=== PATIENT | female | born 1970 | race American Indian/Alaskan Native ===

== ENCOUNTER 2021-05-22 15:43 | Emergency (ER) | payer SELFPAY ==
[2021-05-22 16:43] VITALS: BP 166/81
[2021-05-22] MEDS: MORPHINE 4 MG/1 ML INJ IV ONE ×2 (18:05→18:12)
[2021-05-22] MEDS: ONDANSETRON 4 MG/2 ML INJ IV ONE ×2 (18:05→18:12)
[2021-05-22 19:09] LABS: Bilirubin,Urine NEG (Negative); Blood,Urine NEG (Negative); Color,Urine Yellow (Yellow); Mucus,Urine FEW /HPF; Protein,Urine <15 mg/dL mg/dL (Negative); RBC,Urine < 1.0 /HPF (0.0-6.0); Urobilinogen,Urine < 2.0 mg/dL (<2.0)
--- NOTE | 2021-05-23 15:12 | Emergency Department Report ---
ED Abdominal Pain HPI - General Chief Complaint: Abdominal Pain Stated Complaint: RT LOW ABD PAIN Time Seen by Provider: 05/22/21 17:07 Source: patient Mode of arrival: Ambulatory Limitations: No Limitations - History of Present Illness Initial Comments: 51 yo black female with pmh of HTN and an inguinal hernia presents to the ED for evaluation of RLQ pain and malodorous urine that has "suds" in it. She states that her urine smells like vinegar. She denies fever, n/v/d, vaginal discharge, and dysuria. She states that RLQ pain is 8/10 at its worse. MD Complaint: abdominal pain -: Gradual, days(s) (3-4) Location: RLQ Radiation: none Migration to: no migration Severity scale (0 -10): 6 Quality: aching Consistency: constant Associated Symptoms: denies: nausea, vomiting, diarrhea, fever, chills, dysuria, hematemesis, hematochezia, melena, hematuria, anorexia, syncope - Related Data LMP (females 10-50): other (in menopause.) Allergies Allergy/AdvReac Type Severity Reaction Status Date / Time No Known Allergies Allergy Unverified 05/22/21 16:41 ED Review of Systems ROS: Stated complaint: RT LOW ABD PAIN Other details as noted in HPI Comment: All other systems reviewed and negative Constitutional: denies: chills, diaphoresis, fever, malaise, weakness Eyes: denies: eye pain, eye discharge, vision change ENT: denies: ear pain, throat pain Respiratory: denies: cough, orthopnea, shortness of breath, SOB with exertion, SOB at rest Cardiovascular: denies: chest pain, palpitations, dyspnea on exertion Genitourinary: denies: urgency, dysuria, frequency, discharge, abnormal menses Musculoskeletal: denies: back pain Skin: denies: rash, lesions Neurological: denies: headache, weakness, numbness, paresthesias, confusion, abnormal gait Psychiatric: denies: anxiety, depression Hematological/Lymphatic: denies: easy bleeding, easy bruising ED Physical Exam - General Limitations: No Limitations General appearance: alert, in no apparent distress - Head Head exam: Present: atraumatic, normocephalic - Eye Eye exam: Present: normal appearance. Absent: conjunctival injection - Neck Neck exam: Present: normal inspection. Absent: tenderness, lymphadenopathy - Respiratory Respiratory exam: Present: normal lung sounds bilaterally. Absent: respiratory distress, wheezes, rales, rhonchi, stridor, chest wall tenderness, accessory muscle use - Cardiovascular Cardiovascular Exam: Present: regular rate, normal heart sounds - GI/Abdominal GI/Abdominal exam: Present: soft, tenderness (RLQ), normal bowel sounds. Absent: distended, guarding, rebound - Back Exam Back exam: Present: normal inspection. Absent: CVA tenderness (R), CVA tenderness (L) - Neurological Exam Neurological exam: Present: alert, oriented X3, CN II-XII intact, normal gait - Psychiatric Psychiatric exam: Present: normal affect, normal mood - Skin Skin exam: Present: warm, dry, intact, normal color ED Course Vital Signs 05/22/21 16:42 Temperature 98.0 F Pulse Rate 69 Respiratory 16 Rate Blood Pressure 166/81 [Right] O2 Sat by Pulse 97 Oximetry ED Medical Decision Making - Medical Decision Making 51 yo black female with pmh of HTN and an inguinal hernia presents to the ED for evaluation of RLQ pain and malodorous urine that has "suds" in it. She states that her urine smells like vinegar. She denies fever, n/v/d, vaginal discharge, and dysuria. She states that RLQ pain is 8/10 at its worse. Patient refused to have blood drawn when phlebotomy came to room, so provider went into room to explain the importance of labs in order to find out the problem or at least rule out any life threatening causes. Patient agreed to get labs drawn. She refused again when phlebotomy came back and later seen walking out the door. She came back later but still decided that she would not have blood drawn and left again. Critical care attestation.: If time is entered above; I have spent that time in minutes in the direct care of this critically ill patient, excluding procedure time. ED Disposition Clinical Impression: Eloped from emergency department Disposition: 07 LEFT AWOL/ELOPED Is pt being admited?: No Condition: Stable Instructions: Abdominal Pain (ED) Referrals: PRIMARY CARE, [Primary Care Provider] - 3-5 Days
== END 2021-05-22 20:00 | disposition left against medical advice (07) ==
LOC: ED 15:43
DX: R10.31 Right lower quadrant pain (principal); R82.90 Unspecified abnormal findings in urine; Z53.29 Procedure and treatment not carried out because of patient's decision for other reasons
CPT/HCPCS: 81001; 99282; J2270; J2405